=== PATIENT | female | born 1975 | race Caucasian/White ===

== ENCOUNTER 2020-01-05 18:16 | Emergency (ER) | payer OTHER ==
[~2020-01-05] VITALS: Ht 167.6 cm; Wt 113.4 kg
[2020-01-05 18:30] VITALS: BP 156/83
[2020-01-05] MEDS ORDERED: KETOROLAC 60 MG/2 ML VIAL IM ONE (21:40)
[2020-01-05 21:57] VITALS: BP 156/83
== END 2020-01-05 21:57 | disposition home or self-care (01) ==
LOC: MED 18:16
DX: M17.12 Unilateral primary osteoarthritis, left knee (principal); Z88.1 Allergy status to other antibiotic agents
CPT/HCPCS: 73562; 96372; 99283; J1885

== ENCOUNTER 2022-04-20 18:21 | Emergency (ER) | payer OTHER ==
[~2022-04-20] VITALS: Ht 160 cm; Wt 155.3 kg
[2022-04-20 18:38] VITALS: BP 185/96
--- NOTE | 2022-04-20 18:46 | NUR ---
Oscar rodriguez in [facility] - 04/20/22 at 1905 by [facility] OTHER
--- NOTE | 2022-04-20 19:57 | NUR ---
Patient being evaluated by physician at bedside.
--- NOTE | 2022-04-20 20:15 | NUR ---
Patient discharged with v/s stable. Written and verbal after care instructions given and explained. Patient verbalized understanding. Ambulatory with steady gait. All questions addressed prior to discharge. Advised to follow up with PMD.
== END 2022-04-20 20:15 | disposition home or self-care (01) ==
LOC: MED 18:21
DX: T63.301A Toxic effect of unspecified spider venom, accidental (unintentional), initial encounter (principal); Z88.8 Allergy status to other drugs, medicaments and biological substances; Y92.89 Other specified places as the place of occurrence of the external cause
CPT/HCPCS: 99281